=== PATIENT | female | born 1950 | race Caucasian/White ===

== ENCOUNTER 2020-03-29 12:52 | Outpatient (CLI) | payer MEDICARE ==
[2020-03-29] MEDS ORDERED: NALOXONE 1 MG/ML, 2ML ONE (13:25)
[2020-03-29] MEDS ORDERED: FLUMAZENIL 0.1 MG/1 ML, 5ML ONE (13:25)
[2020-03-29] MEDS ORDERED: FENTANYL PF 100 MCG/2ML ONE (13:25)
[2020-03-29] MEDS ORDERED: MIDAZOLAM 1 MG/ML, 5ML ONE (13:25)
[2020-03-29] MEDS ORDERED: GADOTERATE 10 MMOL/20 ML SYR ONE (14:19)
== END 2020-03-29 23:59 | disposition home or self-care (01) ==
LOC: RAD 12:52
PROVIDERS: ATTEND Ophthalmology
DX: H53.462 Homonymous bilateral field defects, left side (principal); E11.9 Type 2 diabetes mellitus without complications; I10 Essential (primary) hypertension
CPT/HCPCS: 70543; 99156; 99157; A9575; J2250; J3010; J2310

== ENCOUNTER 2020-04-19 16:03 | Outpatient (CLI) | payer MEDICARE ==
[2020-04-19] MEDS ORDERED: GADOTERATE 10 MMOL/20 ML VIAL ONE (17:19)
== END 2020-04-19 23:59 | disposition home or self-care (01) ==
LOC: RAD 16:03
PROVIDERS: ATTEND Neurological Surgery
DX: D32.0 Benign neoplasm of cerebral meninges (principal)
CPT/HCPCS: 70553; A9575